=== PATIENT | male | born 1945 ===

== ENCOUNTER 2021-07-13 10:24 | Outpatient (CLI) | payer MEDICARE, OTHER ==
[~2021-07-13 10:24] MED LIST: Iopamidol-370 76% 500 ML 1 ML ONE
== END 2021-07-13 10:25 | disposition home or self-care (01) ==
LOC: BICCT 10:24
PROVIDERS: ATTEND Internal Medicine Gastroenterology
DX: Z08 Encounter for follow-up examination after completed treatment for malignant neoplasm (principal); Z85.038 Personal history of other malignant neoplasm of large intestine; Z85.048 Personal history of other malignant neoplasm of rectum, rectosigmoid junction, and anus
CPT/HCPCS: 74177; 82565

== ENCOUNTER 2023-10-31 08:58 | Inpatient (IN) | payer MEDICARE, OTHER ==
[2023-10-31] MEDS ORDERED: Rocuronium Bromide 10 MG/ML (10ML VIAL) ONE (09:08)
[2023-10-31] MEDS ORDERED: Etomidate 40 MG (20 mL) VIAL ONE (09:08)
[2023-10-31] MEDS ORDERED: fentaNYL 50 mcg/mL 1 mL Vial ONE ×2 (09:08→10:07)
[2023-10-31] MEDS ORDERED: Fentanyl CADD 100 ML IV SCH (09:15)
[2023-10-31] MEDS ORDERED: Labetalol HCl 100 MG/20 ML VIAL ONE (09:16)
[2023-10-31 09:27] LABS: #Basophils 0.05 10x3/uL (0.0-0.2); %Basophils 0.9 % (0.0-1.0); %Eosinophils 1.6 % (0.0-10.0); %Lymphocytes 17.3 % (21.0-51.0); %Monocytes 7.5 % (0.0-10.0); %Neutrophils 72.3 % (42.0-75.0); Hematocrit 48.7 % (42.0-52.0); Hemoglobin 16.1 g/dL (14.0-18.0); Mean Corpuscular HGB CONC 33.1 g/dL (32.0-36.0); Mean Corpuscular Hemoglobin 31.5 pg (27.0-31.0); Mean Corpuscular Volume 95.3 fL (78.0-98.0); Mean Platelet Volume 10.5 fL (7.4-10.4); Platelet Count 168 10x3/uL (130-400); RBC Distribution Width 12.8 % (11.5-14.5); Red Blood Cell (RBC) Count 5.11 mill/uL (4.70-6.10)
[2023-10-31 09:42] LABS: INR-International Normal Ratio 1.1
[2023-10-31 09:43] LABS: PTT 34.6 sec (22.9-36.1)
[2023-10-31] MEDS ORDERED: Heparin 10,000 UNITS/ 10 ML VIAL ONE (09:50)
[2023-10-31 09:53] LABS: ALT (SGPT) 20 U/L (8-55); AST (SGOT) 18 U/L (5-34); Albumin 3.8 g/dL (3.4-4.8); Alkaline Phosphatase 100 U/L (40-110); Anion Gap 14 mmol/L (10-20); BUN (Urea Nitrogen) 15 mg/dL (8.4-25.7); Bilirubin, Total 1.5 mg/dL (0.2-1.2); Calc. Creatinine Clearance 0 mL/min (70-130); Calcium 9.3 mg/dL (7.8-10.44); Carbon Dioxide 22 mmol/L (23-31); Chloride 109 mmol/L (98-107); Estimated GFR 70; Glucose 165 mg/dL (83-110); Potassium 4.1 mmol/L (3.5-5.1); Protein, Total 6.8 g/dL (5.8-8.1); Sodium 141 mmol/L (136-145)
[2023-10-31 09:56] LABS: Troponin I Less than 0.010 ng/mL (< 0.028)
[2023-10-31] MEDS ORDERED: Tenecteplase 50 MG ONE (09:56)
[2023-10-31] MEDS ORDERED: niCARdipine 25 MG/10 ML SDV ONE (09:57)
[2023-10-31] MEDS ORDERED: Norepinephrine 4 MG/4 ML VIAL ONE (09:58)
[2023-10-31 10:04] LABS: Actual Bicarbonate (HCO3a) 22.7 mEq/L (22-28); Base Excess (BEa) -1.3 mEq/L (-2.0 to +3.0); CO2 Tension 36.4 mmHg (35.0-45.0); Carboxyhemoglobin (COHb) 0.6 gm% (0.0-3.0); Hematocrit-ABG 47 % (42.0-52.0); Hemoglobin (Hb) 16.1 g/dL (14.0-18.0); pH, Arterial 7.413 (7.35-7.45)
[2023-10-31 10:05] LABS: Analyzer IN Cardio ER; Potassium - ABG Lab 3.76 mmol/L (3.70-5.30); Puncture Site Right Radial artery
[2023-10-31] MEDS ORDERED: Midazolam HCl 2 mg/2 ml Vial ONE (10:07)
[2023-10-31 10:16] LABS: Acetaminophen Less than 10 mcg/mL (Less than 10); Alcohol Less than 10.0 mg/dL (Less than 10); Salicylate Less than 8.0 mg/dL (Less than 8.0)
[2023-10-31] MEDS ORDERED: hydrALAZINE 20 MG/ML VIAL SLOW IVP PRN ×2 (10:16→11:12)
[2023-10-31] MEDS ORDERED: niCARdipine 25 MG in Sodium Chloride 0.9% 250 ML 250 ML IVPB PRN (10:16)
[2023-10-31] MEDS ORDERED: Senokot S 8.6-50 MG TAB PO PRN (10:16)
[2023-10-31] MEDS ORDERED: Communication Order-Pharmacy FS ONE (10:16)
[2023-10-31] MEDS ORDERED: Bisacodyl 10 MG SUPP PR PRN (10:16)
[2023-10-31] MEDS ORDERED: Ondansetron PF 4 MG/2 ML Vial IVP PRN (10:16)
[2023-10-31] MEDS ORDERED: Acetaminophen 650 MG Suppository PR PRN (10:16)
[2023-10-31] MEDS ORDERED: Labetalol HCl 100 MG/20 ML VIAL SLOW IVP PRN ×2 (10:16→11:12)
[2023-10-31] MEDS ORDERED: Lactated Ringer's 1,000 ML IV SCH (10:30)
[2023-10-31] MEDS ORDERED: Ventilator Sedation Protocol 1 EACH FS ONE (10:30)
[2023-10-31] MEDS ORDERED: PHENYLEPHRINE-NS 100 MCG/ML 10 ML SYRINGE ONE (10:50)
[2023-10-31 11:03] LABS: Amphetamine Not Detected (NotDetected); Barbiturates Screen Not Detected (NotDetected); Benzodiazepine Screen Not Detected (NotDetected); Cocaine Metabolite Screen Not Detected (NotDetected); Methadone Not Detected (NotDetected); Methamphetamine Not Detected (NotDetected); Opiate Screen Not Detected (NotDetected); Oxycodone Screen Not Detected (NotDetected); Phencyclidine (PCP) Not Detected (NotDetected); THC/Cannabinoid Screen Not Detected (NotDetected); Tricyclic Screen Not Detected (NotDetected)
[2023-10-31] MEDS ORDERED: Iopamidol-370 76% 500 ML MDV (1 ML CHARGE) ONE (11:18)
[2023-10-31] MEDS: niCARdipine 25 MG in Sodium Chloride 0.9% 250 ML 250 ML IVPB PRN (11:56)
[2023-10-31] MEDS: Propofol 1,000 MG/100 ML VIAL IV ONE (11:57)
[2023-10-31] MEDS: Sodium Chloride 0.9% 1,000 ML IV SCH (11:58)
[2023-10-31] MEDS ORDERED: Fentanyl BOLUS 250 ML IVPB PRN (14:00)
[2023-10-31] MEDS ORDERED: DISCONTINUE PREVIOUS NARCOTIC PAIN MEDICATIONS AND BENZODIAZEPINES FS SCH (14:00)
[2023-10-31] MEDS ORDERED: Propofol BOLUS 1,000 MG/100 ML VIAL IV PRN (14:00)
[2023-10-31] MEDS ORDERED: Iopamidol 370 76% 100 ML VIAL ONE (14:46)
[2023-10-31] MEDS: Propofol 1,000 MG/100 ML VIAL IV PRN (15:00)
[2023-10-31] MEDS ORDERED: Famotidine/PF 20 mg/2ml Vial SLOW IVP SCH (21:00)
[2023-10-31] MEDS ORDERED: Atorvastatin Calcium 40 MG TAB PO SCH (21:00)
[2023-11-01] MEDS: Fentanyl CADD 100 ML IV SCH (02:26)
[2023-11-01 06:26] LABS: Cardiac Risk 4.9 (Less than 4.5)
[2023-11-01] MEDS ORDERED: Aspirin 300 MG Suppository PR SCH (09:00)
[2023-11-01] MEDS ORDERED: Aspirin 325 mg Enteric Coated Tablet PO SCH (09:00)
[2023-11-01 09:59] LABS: #Basophils 0.04 10x3/uL (0.0-0.2); %Basophils 0.4 % (0.0-1.0); %Eosinophils 0.7 % (0.0-10.0); %Monocytes 8.8 % (0.0-10.0); %Neutrophils 81.8 % (42.0-75.0); Hematocrit 44.5 % (42.0-52.0); Hemoglobin 14.7 g/dL (14.0-18.0); Mean Corpuscular Hemoglobin 32.2 pg (27.0-31.0); Mean Corpuscular Volume 97.6 fL (78.0-98.0); Mean Platelet Volume 10.5 fL (7.4-10.4); Platelet Count 156 10x3/uL (130-400); RBC Distribution Width 13.1 % (11.5-14.5); Red Blood Cell (RBC) Count 4.56 mill/uL (4.70-6.10)
[2023-11-01 10:16] LABS: Hemoglobin A1c 6.5 % (4.0-6.0)
[2023-11-01 10:35] LABS: ALT (SGPT) 18 U/L (8-55); AST (SGOT) 20 U/L (5-34); Albumin 3.1 g/dL (3.4-4.8); Alkaline Phosphatase 74 U/L (40-110); Anion Gap 9 mmol/L (10-20); BUN (Urea Nitrogen) 16 mg/dL (8.4-25.7); Bilirubin, Total 2.3 mg/dL (0.2-1.2); Calc. Creatinine Clearance 81 mL/min (70-130); Calcium 8.5 mg/dL (7.8-10.44); Carbon Dioxide 26 mmol/L (23-31); Cardiac Risk 4.9 (Less than 4.5); Chloride 110 mmol/L (98-107); Cholesterol 137 mg/dl (< 200 Desired); Estimated GFR 55; Globulin 2.5 g/dL (2.4-3.5); Glucose 150 mg/dL (83-110); HDL Cholesterol 28 mg/dL (>60 Neg Risk); LDL Cholesterol, Calculated 82 mg/dL; Protein, Total 5.6 g/dL (5.8-8.1); Sodium 141 mmol/L (136-145); Triglycerides 134 mg/dL (Less than 150)
[2023-11-02 06:52] LABS: Anion Gap 11 mmol/L (10-20); BUN (Urea Nitrogen) 24 mg/dL (8.4-25.7); Calc. Creatinine Clearance 76 mL/min (70-130); Calcium 8.5 mg/dL (7.8-10.44); Carbon Dioxide 25 mmol/L (23-31); Chloride 109 mmol/L (98-107); Estimated GFR 51; Glucose 168 mg/dL (83-110); Magnesium 1.8 mg/dL (1.6-2.6); Sodium 141 mmol/L (136-145)
[2023-11-02 07:31] LABS: #Basophils 0.03 10x3/uL (0.0-0.2); %Basophils 0.2 % (0.0-1.0); %Eosinophils 0.2 % (0.0-10.0); %Lymphocytes 5.1 % (21.0-51.0); %Monocytes 8.5 % (0.0-10.0); %Neutrophils 85.4 % (42.0-75.0); Hemoglobin 14.6 g/dL (14.0-18.0); Mean Corpuscular HGB CONC 33.1 g/dL (32.0-36.0); Mean Corpuscular Hemoglobin 32.5 pg (27.0-31.0); Mean Corpuscular Volume 98.2 fL (78.0-98.0); Mean Platelet Volume 11.4 fL (7.4-10.4); Platelet Count 129 10x3/uL (130-400); RBC Distribution Width 13.1 % (11.5-14.5); Red Blood Cell (RBC) Count 4.46 mill/uL (4.70-6.10)
[2023-11-02 07:38] LABS: Actual Bicarbonate (HCO3a) 24.1 mEq/L (22-28); Base Excess (BEa) -1.6 mEq/L (-2.0 to +3.0); CO2 Tension 44.3 mmHg (35.0-45.0); Calcium, Ionized (arterial) 1.17 mmol/L (1.12-1.30); Carboxyhemoglobin (COHb) 1.5 gm% (0.0-3.0); Hematocrit-ABG 46 % (42.0-52.0); Hemoglobin (Hb) 15.6 g/dL (14.0-18.0); Potassium - ABG Lab 4.01 mmol/L (3.70-5.30); pH, Arterial 7.354 (7.35-7.45)
[2023-11-02 07:39] LABS: ALV-art Gradient 179.525 mmHg (0-20); Puncture Site Right Radial artery
[2023-11-02] MEDS ORDERED: Dextrose 5% in Water 1,000 ML IV PRN (07:42)
[2023-11-02] MEDS ORDERED: Glucagon 1 MG/ML KIT IM PRN (07:42)
[2023-11-02] MEDS ORDERED: Insulin Lispro 100 UNIT/ML 10 ML VIAL SC PRN (07:42)
[2023-11-02] MEDS ORDERED: Dextrose 50% Abboject 50 ML SYRINGE SLOW IVP PRN (07:42)
[2023-11-02] MEDS: Insulin Lispro 100 UNIT/ML 10 ML VIAL SC PRN (08:31)
[2023-11-02] MEDS: Acetaminophen 650 MG/20.3 ML UDCUP PO PRN (16:18)
[2023-11-02] MEDS: Amiodarone 150 MG, Admixture Fee 1 EACH in Dextrose 5% in Water 100 ML IVPB SCH (16:31)
[2023-11-02] MEDS: Amiodarone 450 MG in Dextrose 5% in Water 250 ML IVPB SCH (16:37)
[2023-11-02] MEDS ORDERED: Vancomycin 1 GM in Sodium Chloride 0.9% 250 ML 250 ML IVPB SCH (21:00)
[2023-11-02] MEDS: Vancomycin (BATCH) 2.5 GM in Premix 1 BAG IVPB SCH (21:12)
[2023-11-02] MEDS: Cefepime 1 GM in Sodium Chloride 0.9% 100 ML IVPB SCH (21:15)
[2023-11-03 06:43] LABS: Hematocrit 43.8 % (42.0-52.0); Hemoglobin 14.2 g/dL (14.0-18.0); Mean Corpuscular HGB CONC 32.4 g/dL (32.0-36.0); Mean Corpuscular Volume 98.6 fL (78.0-98.0); Mean Platelet Volume 11.4 fL (7.4-10.4); Platelet Count 129 10x3/uL (130-400); RBC Distribution Width 13.1 % (11.5-14.5); Red Blood Cell (RBC) Count 4.44 mill/uL (4.70-6.10)
[2023-11-03 06:54] LABS: Anion Gap 11 mmol/L (10-20); BUN (Urea Nitrogen) 36 mg/dL (8.4-25.7); Calc. Creatinine Clearance 62 mL/min (70-130); Calcium 8.8 mg/dL (7.8-10.44); Carbon Dioxide 26 mmol/L (23-31); Chloride 107 mmol/L (98-107); Estimated GFR 40; Glucose 167 mg/dL (83-110); Potassium 4.3 mmol/L (3.5-5.1); Sodium 140 mmol/L (136-145)
[2023-11-03 07:01] LABS: Band 2 % (5-11); Lymphocytes 5 % (21-51); Monocytes 9 % (0-10); Neutrophil 83 % (42-75); Platelet Adequacy Comment Platelets Normal; RBC Morphology Within Normal Limits; Reactive Lymphocytes 1 % (0-10); Smudge Cells 3.9 %
[2023-11-03] MEDS: Cefepime 2 GM in Sodium Chloride 0.9% 100 ML IVPB SCH (08:58)
[2023-11-03] MEDS: Lactated Ringer's 1,000 ML IV SCH (09:07)
[2023-11-03] MEDS ORDERED: Iopamidol-370 76% 500 ML MDV (1 ML CHARGE) ONE (10:52)
[2023-11-03] MEDS: Vancomycin (BATCH) 1.25 GM in Premix 1 BAG IVPB SCH (13:19)
[2023-11-03 15:18] LABS: Bilirubin Negative (Negative); Blood, Urine 3+ (Negative); CAUTI Indications for Culture Fever or rigors; Glucose, Urine (Dipstick) Normal (Negative); Ketone, Urine Negative (Negative); Leukocyte 250 Leu/uL (Negative); Nitrite Negative (Negative); Protein, Urine (Dipstick) 50 mg/dL (Neg-Trace); RBC/HPF Greater than 50 HPF (0-3); Squamous Epithelial None Seen HPF (0-3); Urobilinogen Normal mg/dL (Less than 2); WBC/HPF 21-50 HPF (0-3); pH, Urine 5.5 (5.0-9.0)
[2023-11-03 15:30] LABS: Bacteria/HPF 1+ HPF (None Seen)
[2023-11-03 15:31] LABS: Calcium Oxalate Crystals Rare HPF (None Seen); Clarity Hazy (Clear)
[2023-11-03 15:32] LABS: Specific Gravity, Urine Greater than 1.060 (1.002-1.036)
[2023-11-03 15:35] LABS: Urine Culture Reflex Yes Yes
[2023-11-03] MEDS: Lactated Ringer's 500 ML IV SCH (15:56)
[2023-11-03 17:13] LABS: RBC Count-Automated (BF) 164366 /cu.mm
[2023-11-03 17:18] LABS: Body Fluid Source Bronchial Washings; Tube # EDTA; WBC/Nucleated-Auto (BF) Greater than 51000 /cu.mm
[2023-11-03 17:19] LABS: BF Color Gray; Clarity Cloudy/Turbid (Clear)
[2023-11-03 17:46] LABS: BF Segmented Neutrophils 94 %; Cell Count Non Hematic 2 %; Lymphocytes 4 %
[2023-11-03 18:48] VITALS: BMI 37.5
[2023-11-03] MEDS: Morphine 2 MG/ML VIAL SLOW IVP PRN (21:35)
[2023-11-03] MEDS: Atorvastatin Calcium 40 MG TAB PER TUBE SCH (21:35)
[2023-11-03] MEDS: Vancomycin 1 GM in Premix 1 BAG IVPB SCH (21:44)
[2023-11-04] MEDS: Lorazepam 2 MG/ML VIAL SLOW IVP PRN (01:57)
[2023-11-04 04:32] LABS: Lactic Acid 2.79 mmol/L (0.5-2.2)
[2023-11-04 04:34] LABS: Vancomycin, Random 15.1 ug/mL (See Comment)
[2023-11-04 04:36] LABS: Anion Gap 16 mmol/L (10-20); BUN (Urea Nitrogen) 44 mg/dL (8.4-25.7); Calc. Creatinine Clearance 62 mL/min (70-130); Carbon Dioxide 22 mmol/L (23-31); Chloride 106 mmol/L (98-107); Estimated GFR 38; Glucose 165 mg/dL (83-110); Magnesium 2.1 mg/dL (1.6-2.6); Potassium 4.6 mmol/L (3.5-5.1); Sodium 139 mmol/L (136-145)
[2023-11-04 04:57] LABS: Hemoglobin 14.1 g/dL (14.0-18.0); Mean Corpuscular Hemoglobin 31.7 pg (27.0-31.0); Mean Corpuscular Volume 98.9 fL (78.0-98.0); Mean Platelet Volume 11.7 fL (7.4-10.4); Platelet Count 128 10x3/uL (130-400); RBC Distribution Width 12.8 % (11.5-14.5); Red Blood Cell (RBC) Count 4.45 mill/uL (4.70-6.10)
[2023-11-04 06:11] LABS: Band 20 % (5-11); Eosinophils 1 % (0-10); Large Platelets 2.9 % (0-5); Lymphocytes 2 % (21-51); Macrocytosis SLIGHT = 6-15 cells HPF (0-5); Monocytes 8 % (0-10); Neutrophil 68 % (42-75); Platelet Adequacy Comment Platelets Normal; Polychromasia SLIGHT = 2-3 cells HPF (0-2); Smudge Cells 3.9 %
[2023-11-04] MEDS: Furosemide 40 MG (4 mL) VIAL SLOW IVP SCH (07:48)
[2023-11-04] MEDS: Vancomycin (BATCH) 1.25 GM in Premix 1 BAG IVPB SCH (08:11)
[2023-11-04 14:02] VITALS: BMI 37.3
[2023-11-04 14:09] VITALS: BP 107/60
[2023-11-05 05:57] LABS: Hematocrit 41.7 % (42.0-52.0); Hemoglobin 13.6 g/dL (14.0-18.0); Mean Corpuscular HGB CONC 32.6 g/dL (32.0-36.0); Mean Corpuscular Volume 98.1 fL (78.0-98.0); Mean Platelet Volume 11.9 fL (7.4-10.4); Platelet Count 131 10x3/uL (130-400); RBC Distribution Width 12.9 % (11.5-14.5); Red Blood Cell (RBC) Count 4.25 mill/uL (4.70-6.10)
[2023-11-05 06:19] LABS: Band 30 % (5-11); Large Platelets 1.9 % (0-5); Lymphocytes 3 % (21-51); Monocytes 2 % (0-10); Neutrophil 65 % (42-75); Platelet Adequacy Comment Platelets Normal; RBC Morphology Within Normal Limits; Smudge Cells 8.5 %
[2023-11-05 06:29] LABS: Anion Gap 14 mmol/L (10-20); BUN (Urea Nitrogen) 56 mg/dL (8.4-25.7); Calc. Creatinine Clearance 64 mL/min (70-130); Calcium 9.2 mg/dL (7.8-10.44); Carbon Dioxide 24 mmol/L (23-31); Chloride 105 mmol/L (98-107); Estimated GFR 39; Glucose 203 mg/dL (83-110); Magnesium 2.1 mg/dL (1.6-2.6); Potassium 4.2 mmol/L (3.5-5.1); Sodium 139 mmol/L (136-145)
[2023-11-05 10:19] LABS: O2 Tension (PaO2), arterial 50.3 mmHg (> 70.0)
[2023-11-06] MEDS: Lorazepam 2 MG/ML VIAL ONE (00:10)
[2023-11-06] MEDS: Lorazepam 2 MG/ML VIAL SLOW IVP SCH (00:11)
[2023-11-06 07:39] VITALS: TEMP 99.6
[2023-11-06] MEDS: Scopolamine 1 mg/72 hour Patch TD SCH (10:10)
[2023-11-06] MEDS: Glycopyrrolate 0.4 MG/ 2 ML VIAL SLOW IVP SCH (10:11)
[2023-11-06] MEDS: Glycopyrrolate 0.2 MG/ML 5 ML SYRINGE SLOW IVP SCH (10:23)
[2023-11-06] MEDS: Lorazepam 2 MG/ML VIAL SLOW IVP PRN ×2 (10:25→11:30)
[2023-11-06] MEDS: Morphine 4 MG/ML VIAL SLOW IVP PRN (10:30)
== END 2023-11-06 14:49 | disposition expired | DRG 37 ==
LOC: SUATTDRO 08:58 → ERS 08:58 → CCU 10:10 → ERS 10:16 → CCU 10:50
PROVIDERS: ADMIT Internal Medicine; ATTEND Family Medicine
PROC: 0T9B70Z Drainage of Bladder with Drainage Device, Via Natural or Artificial Opening (ICD-10-PCS; 2023-10-31)
PROC: 0D9670Z Drainage of Stomach with Drainage Device, Via Natural or Artificial Opening (ICD-10-PCS; 2023-10-31)
PROC: 3E0G76Z Introduction of Nutritional Substance into Upper GI, Via Natural or Artificial Opening (ICD-10-PCS; 2023-10-31)
PROC: 0BH17EZ Insertion of Endotracheal Airway into Trachea, Via Natural or Artificial Opening (ICD-10-PCS; 2023-10-31)
PROC: 4A133R1 Monitoring of Arterial Saturation, Peripheral, Percutaneous Approach (ICD-10-PCS; 2023-10-31)
PROC: 3E033XZ Introduction of Vasopressor into Peripheral Vein, Percutaneous Approach (ICD-10-PCS; 2023-10-31)
PROC: 5A1955Z Respiratory Ventilation, Greater than 96 Consecutive Hours (ICD-10-PCS; 2023-10-31)
PROC: 03CY3ZZ Extirpation of Matter from Upper Artery, Percutaneous Approach (ICD-10-PCS; principal; 2023-11-03)
PROC: 0B9M8ZX Drainage of Bilateral Lungs, Via Natural or Artificial Opening Endoscopic, Diagnostic (ICD-10-PCS; 2023-11-03)
PROC: 3E03317 Introduction of Other Thrombolytic into Peripheral Vein, Percutaneous Approach (ICD-10-PCS; 2023-11-04)
PROC: 4A00X4Z Measurement of Central Nervous Electrical Activity, External Approach (ICD-10-PCS; 2023-11-04)
DX: I63.02 Cerebral infarction due to thrombosis of basilar artery (principal); I60.9 Nontraumatic subarachnoid hemorrhage, unspecified; J96.00 Acute respiratory failure, unspecified whether with hypoxia or hypercapnia; I16.1 Hypertensive emergency; N17.9 Acute kidney failure, unspecified; J95.851 Ventilator associated pneumonia; Z66 Do not resuscitate; Z51.5 Encounter for palliative care; I10 Essential (primary) hypertension; I07.1 Rheumatic tricuspid insufficiency; R50.9 Fever, unspecified; I48.91 Unspecified atrial fibrillation; I45.10 Unspecified right bundle-branch block; Z79.899 Other long term (current) drug therapy
CPT/HCPCS: 31500; 36415; 36416; 36600; 51702; 61645; 70450; 70470; 70496; 70498; 70551; 71045; 74018; 80048; 80053; 80061; 80202; 80306; 80307; 81001; 82805; 83036; 83605; 83735; 83880; 84443; 84484; 85025; 85060; 85610; 85730; 87040; 87070; 87081; 87086; 87205; 89051; 93005; 93010; 93306; 94002; 94003; 95700; 95711; 95819; 95957; 96374; 96375; C1769; C1887; C1894; J0282; J0692; J1644; J1815; J1940; J2060; J2250; J2272; J2704; J3010; J3101; J3370; J7030; J7050; J7070; J7120; Q9967